=== PATIENT | male | born 1965 | race Caucasian/White ===

== ENCOUNTER 2018-02-18 19:41 | Emergency (ER) | payer BC ==
[~2018-02-18] VITALS: Ht 165.1 cm; Wt 93.0 kg
[2018-02-18] MEDS ORDERED: ADULT ASPIRIN81 MG PO (20:47)
[2018-02-18] MEDS ORDERED: METFORMIN HYDRO25 GM (20:47)
[2018-02-18] MEDS ORDERED: BYSTOLIC5 MG PO (20:47)
[2018-02-18] MEDS ORDERED: CRESTOR10 MG PO (20:48)
[2018-02-18] MEDS ORDERED: PAXIL10 MG/5 ML PO (20:48)
== END 2018-02-18 22:23 | disposition home or self-care (01) ==
LOC: ER 19:41
DX: H10.212 Acute toxic conjunctivitis, left eye (principal); T65.894A Toxic effect of other specified substances, undetermined, initial encounter; Y92.89 Other specified places as the place of occurrence of the external cause